=== PATIENT | female | born 1990 | race American Indian/Alaskan Native ===

== ENCOUNTER 2016-11-01 20:32 | Emergency (ER) | payer MEDICAID ==
--- NOTE | 2016-11-01 20:48 | Emergency Department Report ---
HPI - General Time Seen by Provider: 11/01/16 20:38 - HPI HPI: This is a 26-year-old Afro-[place] female who presents to the emergency department with a complaint of a 2 day history of abdominal cramping and now some vaginal bleeding that began earlier today. The patient says it is a moderate to large amount present was dripping down her leg. She believes she is as she has missed her period in October and says that she "knows my body", but she has not taken any home test. If she is this time she would be with 3 children, one , and 2 miscarriages. She has not taken anything for symptoms prior to presentation. Her REHABILITATION MANAGER will be Dr. Monica Dorman, but she has not seen them regarding her symptoms. No recent travel or sick contacts at home. Patient also complains of some nausea and vomiting or "spitting up." ED Past Medical Hx - Past Medical History Hx Liver Disease: Yes (Hepatitis C) Additional medical history: hepatitis - Surgical History Additional Surgical History: D&C - Social History Smoking Status: Never Smoker Substance Use Type: Alcohol - Medications Home Medications: Home Medications Medication Instructions Recorded Confirmed Last Taken Type Promethazine [Phenergan] 25 mg PO Q6H PRN #20 tablet 07/31/14 Unknown Rx Vit No.130/Iron/FA 1 each PO QDAY #30 tablet 11/02/16 Unknown Rx [ Tablet] ED Review of Systems ROS: Stated complaint: POSS MISCARRIAGE Other details as noted in HPI Comment: All other systems reviewed and negative Constitutional: denies: chills, fever Eyes: denies: eye pain, eye discharge, vision change ENT: denies: ear pain, throat pain Respiratory: denies: cough, shortness of breath, wheezing Cardiovascular: denies: chest pain, palpitations Gastrointestinal: abdominal pain (cramping) Genitourinary: other (vag bleed). denies: urgency, dysuria, discharge Musculoskeletal: denies: back pain, joint swelling, arthralgia Skin: denies: rash, lesions Neurological: denies: headache, weakness, paresthesias Physical Exam - Physical Exam Physical Exam: GENERAL: The patient is well-developed well-nourished. HEENT: Normocephalic. Atraumatic. Extraocular motions are intact. Patient has moist mucous membranes. Pupils equal reactive to light bilaterally. NECK: Supple. Trachea is midline. CHEST/LUNGS: Clear to auscultation. There is no respiratory distress noted. HEART/CARDIOVASCULAR: Regular. There is no tachycardia. There is no gallop rub or murmur. ABDOMEN: Abdomen is soft. Abdominal pain is not reproducible to palpation. No guarding rebound tenderness. Patient has normal bowel sounds. There is no abdominal distention. SKIN: There is no rash. There is no edema. There is no diaphoresis. NEURO: The patient is awake, alert, and oriented. The patient is cooperative. The patient has no focal neurologic deficits. The patient has normal speech. MUSCULOSKELETAL: There is no tenderness or deformity. There is no limitation range of motion. There is no evidence of acute injury. ED Medical Decision Making - Lab Data Result diagrams: 11/01/16 20:53 11/01/16 20:53 - Radiology Data Radiology results: report reviewed Transvaginal/ ultrasound shows a single live intrauterine gestation at approximately 7 weeks 4 days. There is a small subchorionic bleed identified adjacent to the gestational sac. - Medical Decision Making 26-year-old female presents with 1-2 days of some abdominal cramping but then vaginal bleeding that started today. Patient missed her last menstrual cycle and believes she is . Patient is in fact as she has a beta hCG of greater than 50,000. Ultrasound shows live intrauterine at about 7 weeks and 4 days and a small subchorionic bleed. This the patient's labs are unremarkable including no signs of urinary tract infection and no significant anemia. Patient has a REHABILITATION MANAGER but has not seen them yet. She's been encouraged to see them in the next few days. She'll be started on vitamins. She understands that she should not take anything except for Tylenol, vitamins were things that are prescribed by a physician. She will return to the ER with any worsening of her symptoms or any acute distress. - Differential Diagnosis , threatened , miscarriage, fibroids, UTI Critical Care Time: No Critical care attestation.: If time is entered above; I have spent that time in minutes in the direct care of this critically ill patient, excluding procedure time. ED Disposition Clinical Impression: Threatened miscarriage Qualifiers: Weeks of gestation: less than 8 weeks Qualified Code(s): Z3A.01 - Less than 8 weeks gestation of Disposition: DISCHARGED TO HOME OR SELFCARE Is pt being admited?: No Does the pt Need Aspirin: No Condition: Stable Instructions: (ED), Threatened Miscarriage (ED) Additional Instructions: Please follow-up with your REHABILITATION MANAGER in the next few days without fail. Return to the emergency department with any worsening of your symptoms or any acute distress. I have started you on vitamins. You can take Tylenol every 4 hours, using weight-based dosing, as needed for your discomfort. Otherwise do not take any medications that are not prescribed by a physician. Prescriptions: Vit No.130/Iron/FA [ Tablet] 1 each PO QDAY #30 tablet Referrals: PRIMARY CARE, [Primary Care Provider] - 3-5 Days KEELY ESCALANTE MD [Referring] - 3-5 Days Time of Disposition: 00:01
[2016-11-01 21:08] LABS: Basophils % (Auto) 0.6 % (0.0-1.8); Eosinophils % (Auto) 1.4 % (0.0-4.3); Hematocrit 38.7 % (30.3-42.9); Hemoglobin 12.8 gm/dl (10.1-14.3); Mean Corpuscular HGB Conc 33 % (30-34); Mean Corpuscular Hemoglobin 31 pg (28-32); Mean Corpuscular Volume 93 fl (79-97); Platelet Count 264 K/mm3 (140-440); Red Blood Count 4.15 M/mm3 (3.65-5.03); Red Cell Distribution Width 13.6 % (13.2-15.2); White Blood Count 10.2 K/mm3 (4.5-11.0)
[2016-11-01 21:29] LABS: Alanine Aminotransferase 11 units/L (7-56); Albumin/Globulin Ratio 1.3 %; Alkaline Phosphatase 94 units/L (35-129); Anion Gap 17 mmol/L; BUN/Creatinine Ratio 6.66; Bilirubin,Total 0.7 mg/dL (0.1-1.2); Blood Urea Nitrogen 6 mg/dL (7-17); Calcium 8.8 mg/dL (8.4-10.2); Carbon Dioxide 25 mmol/L (22-30); Glucose 82 mg/dL (65-100); Potassium 4.2 mmol/L (3.6-5.0); Sodium 137 mmol/L (137-145)
[2016-11-01 22:39] LABS: Bilirubin,Urine NEG (Negative); Blood,Urine LG (Negative); Ketones,Urine NEG (Negative); Leukocyte Esterase,Urine NEG (Negative); Mucus,Urine 1+ /HPF; Nitrite,Urine NEG (Negative)
[2016-11-01 22:40] LABS: RBC,Urine > 182.0 /HPF (0.0-6.0)
--- NOTE | 2016-11-01 23:30 | Ultrasound Report ---
FINAL REPORT PROCEDURE: US OB TRANSVAGINAL TECHNIQUE: Real-time transabdominal and transvaginal sonography of the uterus, placenta, amniotic fluid, adnexa, and fetus was performed with image documentation. Measurements were obtained to determine age/size. M-mode Doppler was used to document heartbeat. CPT 08333 and 16681 HISTORY: Preg, bleeding COMPARISON: No prior studies are available for comparison. FINDINGS: ADDITIONAL GESTATION: None. CRL: 10.8 mm, which corresponds to a gestational age of: 7 weeks, 4 days. Yolk Sac: Normal. Embryonic Cardiac Activity: 144 beats per minute Gestational Sac: There is a small subchorionic bleed measuring 2.3 centimeters in greatest dimension. Amniotic fluid: Normal. Cervix: Normal. Right Ovary: Normal. Left Ovary: Normal. Estimated delivery date: 06/16/2017 Uterus and adnexa: Normal. IMPRESSION: 1. Single live intrauterine gestation at approximately 7 weeks, 4 days. 2. EDC by US 06/16/2017 3. There is a small subchorionic bleed identified adjacent to the gestational sac.
--- NOTE | 2016-11-01 23:31 | Ultrasound Report ---
FINAL REPORT PROCEDURE: US OB early transabdominal TECHNIQUE: Real-time transabdominal and transvaginal sonography of the uterus, placenta, amniotic fluid, adnexa, and fetus was performed with image documentation. Measurements were obtained to determine age/size. M-mode Doppler was used to document heartbeat. CPT 85332 and 87264 HISTORY: Preg, bleeding COMPARISON: No prior studies are available for comparison. FINDINGS: ADDITIONAL GESTATION: None. CRL: 10.8 mm, which corresponds to a gestational age of: 7 weeks, 4 days. Yolk Sac: Normal. Embryonic Cardiac Activity: 144 beats per minute Gestational Sac: There is a small subchorionic bleed measuring 2.3 centimeters in greatest dimension. Amniotic fluid: Normal. Cervix: Normal. Right Ovary: Normal. Left Ovary: Normal. Estimated delivery date: 06/16/2017 Uterus and adnexa: Normal. IMPRESSION: 1. Single live intrauterine gestation at approximately 7 weeks, 4 days. 2. EDC by US 06/16/2017 3. There is a small subchorionic bleed identified adjacent to the gestational sac. PROCEDURE: TECHNIQUE: HISTORY: COMPARISON: FINDINGS: IMPRESSION:
[2016-11-02] MEDS ORDERED: TYLENOL PO ONE (00:01)
[2016-11-02 00:16] VITALS: BP 156/68
== END 2016-11-02 00:37 | disposition home or self-care (01) ==
LOC: ED 20:32
DX: O20.0 Threatened abortion (principal); Z3A.01 Less than 8 weeks gestation of pregnancy; Z86.19 Personal history of other infectious and parasitic diseases
CPT/HCPCS: 36415; 76801; 76817; 80053; 81001; 84702; 85025

== ENCOUNTER 2019-04-16 11:25 | Emergency (ER) | payer MEDICAID ==
[2019-04-16 11:50] VITALS: BP 118/65
--- NOTE | 2019-04-16 11:50 | Event Note ---
ED Screening Note Date of service: 04/16/19 Time: 11:46 ED Screening Note: 29 y/o female comes in for vaginal bleeding had blood confirmation of preg last week. LMP 03/24/19. C/o dizziness. This initial assessment/diagnostic orders/clinical plan/treatment(s) is/are subject to change based on patients health status, clinical progression and re- assessment by fellow clinical providers in the ED. Further treatment and workup at subsequent clinical providers discretion. Patient/guardian urged not to elope from the ED as their condition may be serious if not clinically assessed and managed. Initial orders include:
[2019-04-16 12:06] LABS: Basophils % (Auto) 0.7 % (0.0-1.8); Eosinophils # (Auto) 0.2 K/mm3 (0.0-0.4); Eosinophils % (Auto) 3.6 % (0.0-4.3); Hematocrit 37.9 % (30.3-42.9); Hemoglobin 12.6 gm/dl (10.1-14.3); Lymphocytes # (Auto) 2.2 K/mm3 (1.2-5.4); Lymphocytes % (Auto) 49.6 % (13.4-35.0); Mean Corpuscular HGB Conc 33 % (30-34); Mean Corpuscular Volume 93 fl (79-97); Monocytes # (Auto) 0.4 K/mm3 (0.0-0.8); Platelet Count 274 K/mm3 (140-440); Red Blood Count 4.09 M/mm3 (3.65-5.03)
[2019-04-16 12:24] LABS: Bacteria,Urine 1+ /HPF (Negative); Bilirubin,Urine NEG (Negative); Blood,Urine LG (Negative); Color,Urine Red (Yellow); Mucus,Urine FEW /HPF; RBC,Urine > 182.0 /HPF (0.0-6.0); Urobilinogen,Urine < 2.0 mg/dL (<2.0)
--- NOTE | 2019-04-16 13:20 | Emergency Department Report ---
HPI - General Chief Complaint: Vaginal Bleeding Time Seen by Provider: 04/16/19 11:46 ED Past Medical Hx - Past Medical History Previous Medical History?: Yes Hx Liver Disease: Yes (Hepatitis C) Additional medical history: hepatitis - Surgical History Past Surgical History?: Yes Additional Surgical History: . - Social History Smoking Status: Current Some Day Smoker Substance Use Type: Alcohol - Medications Home Medications: Home Medications Medication Instructions Recorded Confirmed Last Taken Type Promethazine [Phenergan] 25 mg PO Q6H PRN #20 tablet 07/31/14 Unknown Rx Vit No.130/Iron/Folic 1 each PO QDAY #30 tablet 11/02/16 Unknown Rx [ Tablet] ED Review of Systems ROS: Stated complaint: EXPECTED MISCARRIAGE Other details as noted in HPI Comment: All other systems reviewed and negative Physical Exam - Physical Exam Vital Signs: Vital Signs 04/16/19 11:46 Temperature 98.3 F Pulse Rate 95 H Respiratory 16 Rate Blood Pressure 118/65 O2 Sat by Pulse 100 Oximetry ED Course Vital Signs 04/16/19 11:46 Temperature 98.3 F Pulse Rate 95 H Respiratory 16 Rate Blood Pressure 118/65 O2 Sat by Pulse 100 Oximetry ED Medical Decision Making - Lab Data Result diagrams: 04/16/19 11:54 - Radiology Data Radiology results: report reviewed, image reviewed Critical care attestation.: If time is entered above; I have spent that time in minutes in the direct care of this critically ill patient, excluding procedure time. ED Disposition Clinical Impression: Threatened in first trimester, Is pt being admited?: No Does the pt Need Aspirin: No Condition: Stable Additional Instructions: PELVIC REST TYLENOL FOR PAIN FOLLOW UP WITH OBGYN IN 72 HOURS FOR REPEAT LABS AND ULTRASOUND Referrals: DONNA VIDES MD [Staff Physician] - 3-5 Days Time of Disposition: 14:16
--- NOTE | 2019-04-16 13:50 | Ultrasound Report ---
Obstetrical ultrasound. 04/16/2019. HISTORY: . Bleeding. FINDINGS: Imaging was performed transabdominally and endovaginally. The uterus measures 10.9 x 5.4 x 7.1 cm. The endometrial stripe is thickened measuring 2 cm. No intra uterine is seen at this time. Multiple complex nabothian cysts are noted. Right ovary measures 4 x 2.3 x 2.4 cm. Left ovary measures 3.8 x 2.4 x 2.9 cm. Blood flow is normal. An echogenic area at the left adnexa measures 1.9 x 2.3 x 1.8 cm is either part of or immediately adj acent to the left ovary. A small amount of free fluid is noted at the cul-de-sac. IMPRESSION: 1. Thickened endometrial stripe. Negative for intrauterine . 2. Normal-appearing right ovary. 3. Indeterminate echogenic lesion at the left adnexa is noted. The differential diagnosis includes he morrhagic cyst, a new lesion or atypical presentation of ectopic . Follow-up ultrasound is r ecommended. Signer Name: Arvin Esparza MD Signed: 04/16/2019 1:45 PM Workstation Name: [id number]
== END 2019-04-16 14:28 | disposition home or self-care (01) ==
LOC: ED 11:25
DX: O20.0 Threatened abortion (principal); O98.411 Viral hepatitis complicating pregnancy, first trimester; B19.20 Unspecified viral hepatitis C without hepatic coma; O99.331 Smoking (tobacco) complicating pregnancy, first trimester; Z79.899 Other long term (current) drug therapy; Z3A.00 Weeks of gestation of pregnancy not specified
CPT/HCPCS: 36415; 76801; 76817; 81001; 84702; 85025; 86900; 86901; 87086